=== PATIENT | male | born 1955 | race African-American/Black ===

== ENCOUNTER → 2017-11-05 | Outpatient (CLI) | payer BC ==
--- NOTE | 2017-11-05 15:34 | MRI ---
EXAM DESCRIPTION: Cervical Spine: MRI. CLINICAL HISTORY: CERVICAL RADICULITIS COMPARISON: None. TECHNIQUE: Multiplanar MRI, multiple sequences, non-contrast High-field. FINDINGS: C2-3: Minimal disc desiccation with no bulging. Disc space preserved. Uncinate spur and minimal narrowing of the left neural foramen. Canal and right neural foramen are patent. Facets are negative. C3-4: Disc desiccation with anterior disc space loss and Modic type II endplate reactive changes. Anterior endplate ridging. Bilateral uncinate spurs with mild to moderate neural foraminal narrowing. Minimal arthrosis of the left facet. Canal is patent. C4-5: Disc desiccation and minimal disc space loss. Anterior bulging and endplate ridging. Posterior 2 mm disc bulge almost abutting the cord. Bilateral uncinate spurs. Mild to moderate right neural foraminal narrowing and moderate left neural foraminal narrowing. Minimal right facet arthrosis. C5-6: Disc desiccation anterior bulging and endplate ridging. Posterior disc space narrowing. Posterior broad-based disc osteophyte bulge abutting the cord. Bilateral uncinate spurs. Bilateral mild facet arthrosis. Posterior flavum ligament hypertrophy. Moderate canal narrowing. Moderate right neural foraminal narrowing and left neural foraminal stenosis. C6-7: Moderate disc space loss and disc desiccation. Anterior bulging disc and spurs. Posterior broad-based disc bulge almost abutting the cord. Bilateral uncinate spurs. Moderate right neural foraminal narrowing. Left side Modic type II endplate reactive changes. Disc spur complex encroaching on the left foramen which is stenotic. Bilateral facets are negative. C7-T1: Minimal disc desiccation with disc space preserved. Tiny posterior bulge. Canal and foramina are patent. Facets are negative. Normal signal in the T1-2 disc with no bulging. Disc space preserved. Canal and neural foramina are patent. Facets are negative. No scoliosis. Spine is normally lordotic. No cord compression or cord edema. Atlantoaxial joint is unremarkable. Base of the cerebellar tonsils is above the foramen magnum. Paravertebral soft tissues are unremarkable. Vertebral bodies are not compressed at any level. Normal marrow signal in the remaining vertebral bodies and the posterior elements. IMPRESSION: 1. Moderate spondylosis on the left at C6-7 with disc spur complex resulting in left neural foraminal stenosis. Narrowing of the canal and right foramen. 2. C5-6 posterior disc osteophyte complex abutting the cord. Left neural foraminal stenosis with left side disc spur complex and facet arthrosis. Electronically signed by: Chao Ramos MD 11/05/2017 3:33 PM CDT
== END ==
LOC: MRI 09-20 09:55
PROVIDERS: ATTEND Emergency Medicine
DX: M54.12 Radiculopathy, cervical region (principal); M48.02 Spinal stenosis, cervical region

== ENCOUNTER → 2020-04-13 | Outpatient (CLI) | payer BC ==
--- NOTE | 2020-04-13 12:59 | RAD ---
Single frontal radiograph pelvis Indication: PAIN IN RIGHT HIP Comparison: None Impression: Mild to moderate bilateral hip osteoarthritis. No acute fracture. Mild pubic symphysis osteoarthritis. Electronically signed by: Mic Crystal MD 04/13/2020 12:58 PM [facility]
--- NOTE | 2020-04-13 12:59 | RAD ---
4 radiographs right knee Indication: PAIN IN RIGHT KNEE Comparison: None Impression: Moderate to severe narrowing medial and lateral knee compartments with moderate narrowing patellofemoral compartment. Small joint line osteophytes. Small joint effusion. No acute fracture. Electronically signed by: Mic Crystal MD 04/13/2020 12:57 PM [facility]
== END ==
LOC: RAD 09:19
PROVIDERS: ATTEND Orthopaedic Surgery
DX: M16.0 Bilateral primary osteoarthritis of hip (principal); M19.90 Unspecified osteoarthritis, unspecified site; M25.861 Other specified joint disorders, right knee; M25.761 Osteophyte, right knee; M25.461 Effusion, right knee

== ENCOUNTER 2020-05-19 05:30 | Day surgery (SDC) | payer BC ==
--- NOTE | 2020-04-30 10:16 | RAD ---
EXAM DESCRIPTION: Chest,2 Views CLINICAL HISTORY: encoutner for preprocedural examination COMPARISON: None TECHNIQUE: PA/lateral FINDINGS: There is no acute appearing cardiac or pulmonary abnormality. Heart size is normal with normal pulmonary vascularity. No pleural effusion or pneumothorax. Lungs are clear with no consolidating infiltrate. Lateral view shows intact sternum and spurring in the mid to lower T-spine. IMPRESSION: No acute process is identified in the chest. Electronically signed by: Nathan Sewell MD 04/30/2020 10:15 AM [facility]
[2020-05-19] MEDS ORDERED: ceFAZolin SODIUM 1 GM VIAL ONE ×2 (05:39→06:36)
[2020-05-19] MEDS ORDERED: SODIUM CHL 0.9% 100ML MINI-BAG 100 ML IVPB ONE (05:39)
[2020-05-19] MEDS ORDERED: LACTATED RINGERS 1,000 ML ONE (05:39)
[2020-05-19] MEDS ORDERED: SODIUM CHLORIDE 0.9% (FLUSH) 10 ML SYG ONE (05:39)
[2020-05-19] MEDS ORDERED: KETAMINE HCL 100 MG/ML VIAL ONE (06:31)
[2020-05-19] MEDS ORDERED: MIDAZOLAM INJ 2 MG/2 ML VIAL ONE (06:31)
[2020-05-19] MEDS ORDERED: DEXMEDETOMIDINE HCL 200 MCG/2 ML INJ IV ONE (06:31)
[2020-05-19] MEDS ORDERED: fentaNYL CITRATE INJ 50 MCG/ML 2 ML AMP ONE (06:32)
[2020-05-19] MEDS ORDERED: FAMOTIDINE INJ 10 MG/ML VIAL IV ONE (06:32)
[2020-05-19] MEDS ORDERED: VANCOMYCIN HCL INJ 1,000 MG VIAL IVPB ONE ×3 (06:36→06:53)
[2020-05-19] MEDS ORDERED: BUPIVACAINE LIPOSOME 13.3 MG/ML VIAL INJ ONE ×2 (06:37→06:53)
[2020-05-19] MEDS ORDERED: BUPIVACAINE 0.5% 30 ML VIAL INJ ONE ×2 (06:37→06:53)
[2020-05-19] MEDS ORDERED: ceFAZolin SODIUM 1 GM VIAL INJ ONE (06:53)
[2020-05-19] MEDS ORDERED: DEXAMETHASONE INJ 10 MG/ML VIAL ONE (07:00)
[2020-05-19] MEDS ORDERED: PROPOFOL 200 MG/20 ML VIAL IV ONE (07:00)
[2020-05-19] MEDS ORDERED: KETOROLAC TROMETHAMINE INJ 30 MG/ML VIAL ONE (07:00)
[2020-05-19] MEDS ORDERED: MAGNESIUM SULFATE INJ 1 GM/2 ML VIAL ONE (07:00)
[2020-05-19] MEDS ORDERED: LIDOCAINE 1% 10 ML VIAL INJ ONE (07:00)
[2020-05-19 09:41] VITALS: BP 136/53; TEMP 96.8; O2SAT 96
--- NOTE | 2020-05-19 12:05 | OP ---
DATE OF PROCEDURE: 05/19/20 PREOPERATIVE DIAGNOSIS: 1. Left knee pain. POSTOPERATIVE DIAGNOSIS: 1. Advanced osteoarthritis. 2. Meniscus tearing. PROCEDURE: 1. Debridement. 2. Partial meniscectomy. SURGEON: Andres Santana MD. CUSTOMER ENGAGEMENT REPRESENTATIVE: Chao Reyes CST, SA-C. ANESTHESIA: General anesthesia. COMPLICATIONS: None. FINDINGS: 1. Full thickness defect and cartilage loss in the medial compartment. 2. Normal anterior cruciate ligament, normal posterior cruciate ligament. 3. Softening of the cartilage in the lateral compartment. 4. Degenerative tearing of the lateral meniscus. 5. Normal lateral gutter. 6. Normal suprapatellar pouch. 7. Complete loss of cartilage on the medial femoral condyle and the trochlear notch as well and the patellar articular surface. 8. Normal medial gutter. INDICATION: Mr. Cummins has a history of pain in the knee which has unfortunately been refractory to conservative measures. Because of his ongoing pain and refractory nature, he has requested operative intervention. After discussing the risks, benefits and alternatives to that, the patient has given informed consent for operative intervention. PROCEDURE: The patient was brought to the Operating Room and placed in supine position. General anesthesia was induced and the patient's leg was sterilely prepped and draped. Following prepping and draping, standard anteromedial and anterolateral portals were established. Diagnostic arthroscopy was carried out with the above findings. Attention was then focused on medial compartment. A 3.5 mm full radius shaver was used to debride the medial compartment. The cartilaginous surfaces were thoroughly probed to ensure that there were no unstable fragments. Attention was focused on the lateral compartment where the shaver was used to perform a partial lateral meniscectomy. The knee was thoroughly drained. Following draining of the knee, the wounds were closed with Nylon suture. Sterile dressings were placed. The patient was awoken from anesthesia and taken to Recovery. POSTOPERATIVE PLAN: The patient will be partial weightbearing and will followup with us in two days. #[id number] [facility]
== END 2020-05-19 09:38 ==
LOC: MERGE 05:30 → AMB 05:30
PROVIDERS: ATTEND Orthopaedic Surgery
DX: M17.12 Unilateral primary osteoarthritis, left knee (principal); S83.242A Other tear of medial meniscus, current injury, left knee, initial encounter; I10 Essential (primary) hypertension; B35.3 Tinea pedis; Z79.899 Other long term (current) drug therapy
CPT/HCPCS: 01400; 29881; 36415; 71046; 80048; 80307; 81001; 85025; 87070; 87086; A4216; J0690; J1100; J1885; J2250; J3010; J3370; J3475; J3490; J7050; J7120